=== PATIENT | female | born 1990 | race Caucasian/White ===

== ENCOUNTER → 2019-01-15 | Outpatient (CLI) | payer OTHER, MEDICARE | END | disposition home or self-care (01) | LOC: SPEC 12:52 | DX: Z01.419 Encounter for gynecological examination (general) (routine) without abnormal findings (principal) | CPT/HCPCS: 88175 ==

== ENCOUNTER → 2019-01-30 | Outpatient (CLI) | payer OTHER | END | disposition home or self-care (01) | LOC: LAB 09:28 | PROVIDERS: ATTEND Family Medicine | DX: Z11.3 Encounter for screening for infections with a predominantly sexual mode of transmission (principal) | CPT/HCPCS: 36415; 86592; 86703 ==

== ENCOUNTER → 2020-12-27 | Outpatient (CLI) | payer OTHER ==
[~2020-12-27] MED LIST: CHOL200074 PO; CRAN400T5 PO; DOXY100T PO; MULT-496 PO; OMEG1CAP68 PO
== END ==
LOC: LAB 13:52
PROVIDERS: ATTEND Otolaryngology
DX: Z01.812 Encounter for preprocedural laboratory examination (principal); J32.0 Chronic maxillary sinusitis; J32.1 Chronic frontal sinusitis; J32.2 Chronic ethmoidal sinusitis; J32.3 Chronic sphenoidal sinusitis; J01.41 Acute recurrent pansinusitis; J34.3 Hypertrophy of nasal turbinates; Z20.822 Contact with and (suspected) exposure to COVID-19
CPT/HCPCS: U0003; U0005

== ENCOUNTER 2020-12-30 06:59 | Day surgery (SDC) | payer OTHER ==
[~2020-12-30] VITALS: Ht 162.6 cm; Wt 81.6 kg
[~2020-12-30 06:59] MED LIST changes: +HYDROmorphone 2 MG/ML VIAL IVP PRN; +IV RINGERS,LACTATED 1000ML 1,000 ML IV SCH; +MORPHINE SULFATE 2 MG/ML VIAL. IVP PRN; +PROCHLORPERAZINE 10 MG/2 ML VIAL. IVP PRN; +fentaNYL PF VIAL 100 MCG/2 ML VIAL IVP PRN
[2020-12-30] MEDS ORDERED: OXYMETAZOLINE 0.05% NASAL SPRAY 30ML BOTTLE. NS ONE ×2 (07:30→08:12)
[2020-12-30] MEDS ORDERED: SEVOFLURANE 61 TO 120 MINUTES. IH ONE (07:57)
[2020-12-30] MEDS ORDERED: LIDOCAINE 2% PF 5 ML VIAL. ONE (07:57)
[2020-12-30] MEDS ORDERED: MIDAZOLAM HCL/PF 2 MG/2 ML VIAL. ONE (07:57)
[2020-12-30] MEDS ORDERED: ONDANSETRON PF 4 MG/2 ML VIAL. ONE (07:57)
[2020-12-30] MEDS ORDERED: DEXAMETHASONE SOD PHOS 4 MG/ML VIAL ONE ×2 (07:57→08:05)
[2020-12-30] MEDS ORDERED: ROCURONIUM 50 MG/5 ML VIAL. ONE (07:57)
[2020-12-30] MEDS ORDERED: PROPOFOL 10 MG/ML (20ML) VIAL. IV ONE (07:57)
[2020-12-30] MEDS ORDERED: fentaNYL PF VIAL 100 MCG/2 ML VIAL ONE (07:57)
[2020-12-30] MEDS ORDERED: SCOPOLAMINE 1.5MG PATCH. TD ONE (08:00)
[2020-12-30] MEDS ORDERED: MUPIROCIN 2 % NASAL OINTMENT 22GM TUBE. ONE (08:12)
[2020-12-30] MEDS ORDERED: GELATIN SPONGE SIZE 100. ONE (08:12)
[2020-12-30] MEDS ORDERED: PHENYLEPHRINE 0.25% NASAL SPRAY 15ML BOTTLE. NS ONE (08:13)
[2020-12-30] MEDS ORDERED: NEOMY/BACITR/POLYMYXIN OINT PACKET. TP ONE (08:13)
[2020-12-30] MEDS ORDERED: EPINEPHrine VIAL 30 MG/30 ML VIAL ONE (08:13)
[2020-12-30] MEDS ORDERED: LIDOCAINE 1%/EPI 1:100,000 20 ML VIAL. ONE (08:13)
--- NOTE | 2020-12-30 08:26 | PDOC1 ---
History and Physical Date of Admission Date of Admission DATE: 12/30/20 TIME: 08:21 Identification/Chief Complaint Chief Complaint chronic left-sided pansinusitis History of Present Illness History of Present Illness 30 year old female whom suffers from chronic left pansinusitis for the past 4-5 months. Patient has constant left-sided sinus pressure/pain, drainage and bilateral nasal congestion. These symptoms have been refractory to medical management. Patient has been treated with multiple courses of antibiotcs and steroids without resolution of symptoms. Past Medical History Past Medical History none Social History Smoke: No ALCOHOL: none Current Medications Current Medications Current Medications Fentanyl Citrate (Fentanyl 2ml Vial) 25 mcg PRN Q5MIN PRN IVP MILD PAIN 1-3; Start 12/30/20 at 06:00; Stop 12/31/20 at 05:59 Fentanyl Citrate (Fentanyl 2ml Vial) 50 mcg PRN Q5MIN PRN IVP MODERATE PAIN 4- 6; Start 12/30/20 at 06:00; Stop 12/31/20 at 05:59 Morphine Sulfate (Morphine Sulfate) 1 mg PRN Q10MIN PRN IVP SEVERE PAIN 7-10; Start 12/30/20 at 06:00; Stop 12/31/20 at 05:59 Ringer's Solution 1,000 ml @ 30 mls/hr Q24H IV Last administered on 12/30/20at 08:05; Start 12/30/20 at 06:00; Stop 12/30/20 at 17:59 Hydromorphone HCl (Dilaudid) 0.5 mg PRN Q10MIN PRN IVP SEVERE PAIN 7-10, 2nd CHOICE; Start 12/30/20 at 06:00; Stop 12/31/20 at 05:59 Prochlorperazine Edisylate (Compazine) 5 mg PACU PRN PRN IVP NAUSEA, MRX1; Start 12/30/20 at 06:00; Stop 12/31/20 at 05:59 Oxymetazoline HCl (Afrin) 3 spray 1X ONCE NS Last administered on 12/30/20at 07:30; Start 12/30/20 at 07:30; Stop 12/30/20 at 07:31; Status DC Scopolamine (Transderm-Scop) 1 patch 1X ONCE TD Last administered on 12/30/20at 08:05; Start 12/30/20 at 08:00; Stop 12/30/20 at 08:01; Status DC Rocuronium [place] (Zemuron) 50 mg STK-MED ONCE .ROUTE ; Start 12/30/20 at 07:57; Stop 12/30/20 at 07:57; Status DC Fentanyl Citrate (Fentanyl 2ml Vial) 100 mcg STK-MED ONCE .ROUTE ; Start 12/30/20 at 07:57; Stop 12/30/20 at 07:57; Status DC Midazolam HCl (Versed) 2 mg STK-MED ONCE .ROUTE ; Start 12/30/20 at 07:57; Stop 12/30/20 at 07:58; Status DC Sevoflurane (Ultane) 60 ml STK-MED ONCE IH ; Start 12/30/20 at 07:57; Stop 12/30/20 at 07:58; Status DC Dexamethasone Sodium Phosphate (Decadron) 4 mg STK-MED ONCE .ROUTE ; Start 12/30/20 at 07:57; Stop 12/30/20 at 07:58; Status DC Propofol (Diprivan) 200 mg STK-MED ONCE IV ; Start 12/30/20 at 07:57; Stop 12/30/20 at 07:58; Status DC Lidocaine HCl (Lidocaine Pf 2% Vial) 5 ml STK-MED ONCE .ROUTE ; Start 12/30/20 at 07:57; Stop 12/30/20 at 07:58; Status DC Ondansetron HCl (Zofran) 4 mg STK-MED ONCE .ROUTE ; Start 12/30/20 at 07:57; Stop 12/30/20 at 07:58; Status DC Dexamethasone Sodium Phosphate (Decadron) 4 mg STK-MED ONCE .ROUTE ; Start 12/30/20 at 08:05; Stop 12/30/20 at 08:06; Status DC Gelatin (Gelfoam Size 100) 1 each STK-MED ONCE .ROUTE ; Start 12/30/20 at 08:12; Stop 12/30/20 at 08:13; Status DC Mupirocin (Bactroban) 22 bryson STK-MED ONCE .ROUTE ; Start 12/30/20 at 08:12; Stop 12/30/20 at 08:13; Status DC Oxymetazoline HCl (Afrin) 120 spray STK-MED ONCE NS ; Start 12/30/20 at 08:12; Stop 12/30/20 at 08:13; Status DC Epinephrine HCl (Adrenalin) 30 mg STK-MED ONCE .ROUTE ; Start 12/30/20 at 08:13; Stop 12/30/20 at 08:13; Status DC Phenylephrine HCl (Isaías-Synephrine 0.25% Nasal) 60 spray STK-MED ONCE NS ; Start 12/30/20 at 08:13; Stop 12/30/20 at 08:13; Status DC Neomycin/ Polymyxin/ Bacitracin (Triple Antibiotic Ointment) 1 pkt STK-MED ONCE TP ; Start 12/30/20 at 08:13; Stop 12/30/20 at 08:13; Status DC Lidocaine/ Epinephrine (LIDOCAINE 1%-EPI 1:100,000 Multi-Dose) 20 ml STK-MED ONCE .ROUTE ; Start 12/30/20 at 08:13; Stop 12/30/20 at 08:13; Status DC Active Scripts Active Reported Cranberry (Cranberry Fruit) 400 Mg Tablet 400 Mg PO DAILY Fish Oil 500 Mg Softgel ([place]-3/Dha/Epa/Fish Oil) 1 Each Capsule 1 Each PO DAILY Vitamin D3 (Cholecalciferol (Vitamin D3)) 50 Mcg Capsule 50 Mcg PO DAILY Daily Value (Multivitamin) 1 Each Tablet 1 Each PO DAILY Doxycycline Hyclate 100 Mg Tablet 100 Mg PO BID Allergies Allergies: Coded Allergies: No Known Drug Allergies (Unverified , 12/30/20) ROS General: No: Chills, Night Sweats, Fatigue, Malaise, Appetite, Other PSYCHOLOGICAL ROS: No: Anxiety, Behavioral Disorder, Concentration difficultie, Decreased libido, Depression, Disorientation, Hallucinations, Hostility, Irritablity, Memory difficulties, Mood Swings, Obsessive thoughts, Physical abuse, Sexual abuse, Sleep disturbances, Suicidal ideation, Other HEENT: YES: Nasal congestion, Nasal discharge, Sinus pain, Sore Throat Hematological and Lymphatic: No: Bleeding Problems, Blood Clots, Blood Transf usions, Brusing, Night Sweats, Pallor, Swollen Lymph Nodes, Other Respiratory: No: Cough, Hemoptysis, Orthopnea, Pleuritic Pain, Shortness of breath, SOB with excertion, Sputum Changes, Stridor, Tachypnea, Wheezing, Other Cardiovascular: No Chest Pain, No Palpitations, No Orthopnea, No Paroxysmal Noc. Dyspnea, No Edema, No Lt Headedness, No Other Gastrointestinal: No Nausea, No Vomiting, No Abdominal Pain, No Diarrhea, No Constipation, No Melena, No Hematochezia, No Other Physical Exam General: Alert, Oriented X3, Cooperative HEENT: Atraumatic, PERRLA, EOMI, Mucous membr. moist/pink, Other (bilateral inferior turbinate hypertrophy ) Lungs: Clear to auscultation, Normal air movement Heart: no jug vein distention Extremities: No clubbing, No cyanosis, No edema Skin: No rashes Neuro: Normal gait, Normal speech, Normal tone, Cranial nerves 3-12 NL Psych/Mental Status: Mental status NL, Mood NL Vitals Vitals Vital Signs Date Time Temp Pulse Resp B/P (MAP) Pulse Ox O2 Delivery O2 Flow Rate FiO2 12/30/20 07:39 97.9 77 18 115/67 99 Room Air 97.9 Labs Labs Laboratory Tests Test 12/30/20 06:27 Bedside Urine HCG, Qualitative Hcg negative (Negative) Laboratory Tests Test 12/30/20 06:27 Bedside Urine HCG, Qualitative Hcg negative (Negative) Images Images CT Sinus (November 2020): Ongoing opacification of left frontal, maxillary, ethmoid sinuses. Mucosal thickening within left posterior ethmoid and sphenoid sinuses. Bilateral inferior turbinate hypertrophy VTE Prophylaxis Ordered VTE Prophylaxis Devices: Yes VTE Pharmacological Prophylaxi: Contraindicated Assessment/Plan Assessment/Plan 30 year old female with chronic left-sided pansinusitis that has been refractory to medical management. Patient also has chronic nasal congestion secondary to bilateral inferior turbinate hypertrophy. - To OR for left functional endoscopic sinus surgery under Image Guidance Navigation (frontal, ethmoid, sphenoid, maxillary), bilateral inferior turbinate reduction and possible septoplasty. Informed consent obtained today. Justifications for Admission Other Justification ELIDIA VALENCIA MD Dec 30, 2020 08:26
[2020-12-30] MEDS ORDERED: NEOSTIGMINE METHYLSULFATE 5 MG/5 ML SYRINGE. ONE (09:07)
[2020-12-30] MEDS ORDERED: GLYCOPYRROLATE 1 MG/5 ML VIAL. ONE (09:07)
--- NOTE | 2020-12-30 10:25 | PDOC4 ---
IMMEDIATE POST OP NOTE Date: Dec 30, 2020 Pre-Op Diagnosis left chronic pansinusitis, bilateral inferior turbinate hypertrophy Post-Op Diagnosis left chronic pansinusitis, left maxillary allergic fungal sinusitis, bilateral inferior turbinate hypertrophy Procedure Performed left functional endoscopic sinus surgery under Image Guidance Navigation to include left frontal sinusotomy with removal of tissue, left total ethmoidectomy, left medial maxillary antrostomy with tissue removal, left sphenoidotomy; bilateral inferior turbinate reduction Surgeon Dr. Tracy Negrete Clinical Consultant none Anesthesiologist Dr. Palmer Anesthesia Type: General Blood Loss 25 mL Specimens Obtained left maxillary sinus contents sent for permanent pathology; left maxillary sinus contents for aerobic and fungal culture Findings 1. Polyps extending into middle meatus from left maxillary sinus. 2. Eosinophilic mucin filling left maxillary sinus with surrounding mucopurulent discharge and polyps 3. Mucosal inflammation involving left ethmoid, sphenoid and frontal sinus with some polyps within left frontal sinus 4. Bilateral inferior turbinate hypertrophy Complications none Operative Note Dictation #[id number] TRACY NEGRETE MD Dec 30, 2020 10:25
[2020-12-30] MEDS ORDERED: ACET325T9 PO (10:28)
[2020-12-30] MEDS ORDERED: OXYC5CAP PO (10:31)
[2020-12-30] MEDS ORDERED: ONDA4TAB12 PO (10:31)
[2020-12-30] MEDS ORDERED: SULF1TAB24 PO (10:31)
[2020-12-30] MEDS ORDERED: SODI1PAC NS (10:31)
[2020-12-30] MEDS ORDERED: PROCHLORPERAZINE 10 MG/2 ML VIAL. ONE (10:40)
[2020-12-30] MEDS ORDERED: CELE200C PO ×2 (10:59→11:02)
[2020-12-30] MEDS ORDERED: PRED20TA PO ×2 (11:00→11:03)
[2020-12-30 11:20] VITALS: BP 118/64
--- NOTE | 2020-12-30 11:20 | OP ---
DATE OF SURGERY: PREOPERATIVE DIAGNOSES: Left chronic pansinusitis and bilateral inferior turbinate hypertrophy. POSTOPERATIVE DIAGNOSES: Left chronic pansinusitis, left maxillary allergic fungal sinusitis and bilateral inferior turbinate hypertrophy. PROCEDURE PERFORMED: Left-sided functional endoscopic sinus surgery under image guidance navigation to include left frontal sinusotomy with removal of tissue, left total ethmoidectomy, left medial maxillary antrostomy with tissue removal and left sphenoidotomy, bilateral inferior turbinate reduction. SURGEON: Tracy Negrete MD ANESTHESIA: General endotracheal anesthesia. INDICATIONS FOR SURGERY: The patient is a 30-year-old female with a 4- to 5-month history of chronic sinus pressure and chronic nasal congestion with CT imaging showing complete opacification of the left frontal and maxillary sinuses. This was refractory to maximal medical management. The decision was made that the patient will undergo above procedure after risks, benefits, and alternatives of surgery were thoroughly discussed with the patient and informed consent was obtained. SPECIMEN: Left maxillary sinus contents were sent for permanent pathology and left maxillary sinus contents were sent for aerobic and fungal culture. INTRAOPERATIVE FINDINGS: 1. Polyps extending into the middle meatus from the left maxillary sinus. 2. Eosinophilic mucin filling the left maxillary sinus with surrounding mucopurulent discharge and polyps. 3. Mucosal inflammation involving the left ethmoid, sphenoid and frontal sinuses with katiana polyps involving the left frontal sinus. 4. Bilateral inferior turbinate hypertrophy. ESTIMATED BLOOD LOSS: 25 mL. COMPLICATIONS: None. DESCRIPTION OF THE PROCEDURE: The patient was brought back to room per Anesthesia and intubated in standard fashion. The patient was then turned 90 degrees in the room. Her nasal vestibular hairs were trimmed. The anterior septum and anterior aspect of the inferior turbinates were injected with a submucosal injection of 1% lidocaine with 1:100,000 epinephrine. Afrin-soaked pledgets were inserted in nasal cavity. The [employer] image guidance system was set up and verified for accuracy. This was used to ensure complete dissection and for patient safety. The patient was then prepped and draped in standard fashion. Afrin-soaked pledgets were removed. The 0-degree scope was used to visualize the patient's left and right nasal cavity. The septum was found to have a slight high septal deflection to the left, but not significant enough to require a septoplasty. I injected the attachment of the middle turbinate to the lateral nasal wall on the left side, both anteriorly and posteriorly with 1% lidocaine with a submucosal injection of 1% lidocaine with 1:100,000 epinephrine. On visualization of the middle meatus. The uncinate process was medialized from severe polyps that were emanating from the maxillary sinus. Using a sharp dissection, I completely resected the uncinate process. I then further resected the specimens of the polyps extending from the maxillary sinus and then used the microdebrider to debride these polyps. The maxillary antrostomy itself had been previously widened from the polyps and inflammation itself. This was further widened both anteriorly and posteriorly with sharp dissection until it was widely patent. Within the maxillary sinus, there was katiana eosinophilic mucin and mucopurulent discharge from the eosinophilic mucin was sent for permanent pathology and the cultures were taken of the surrounding purulent discharge. I then used a 30-degree scope to visualize within the maxillary sinus and the polyps were completely debrided and the eosinophilic mucin was completely aspirated from the maxillary sinus itself. Once all of the bulky disease was gone, I irrigated the maxillary sinus multiple times with normal saline until there was no further eosinophilic mucin identified and debrided obvious inflamed polypoid tissue from the maxillary sinus itself. A 0-degree scope was again used to visualize the nasal cavity. I performed a complete ethmoidectomy first by dissecting through the medial inferior plane of the anterior ethmoid bulla. I continued my dissection through the ethmoid sinuses from anterior to posterior direction removing all the mucosal inflammation from the ethmoid sinuses themselves. Posteriorly, I identified the face of the sphenoid sinus. At the face of the sphenoid sinus, I dissected through the posterior aspect of the middle turbinate, identified the superior turbinate just medial and inferior to the superior turbinate, identified the natural os of the sphenoid sinus. This was widened both superiorly to the skull base and laterally to the lamina papyracea using sharp dissection. I used 30-degree scope to then visualize the skull base. Traveling from a posterior to anterior direction, I removed all the ethmoid air cells off the skull base. By removing the suprabullar ethmoid air cells and a small posterior wall of the agger nasi cell, I was able to widen the frontal sinus outflow tract. There was significant polypoid inflammation emanating from the frontal sinus and this was removed using sharp dissection as well as the microdebrider. Once the frontal sinus was widely patent, I again irrigated all the sinuses again with normal saline. Topical Iasías-Synephrine was then placed for several minutes for hemostasis. The middle turbinate was then bolgerized to the septum using a sickle knife. A Propel contour implant was placed within the frontal sinus outflow tract and a Propel standard implant was placed within the posterior ethmoid sinuses ensuring that the middle turbinate was well medialized. I then performed a bilateral inferior turbinate reduction beginning on the left side using a 0-degree scope to visualize the patient's left nasal cavity. I cut into the anterior aspect of the inferior turbinate using the microdebrider. I then performed a submucosal resection of the anterior aspect of the inferior turbinate. I then trimmed the excess mucosa along the entire length of the inferior turbinate along its lateral and inferior border including the posterior mulberry tissue. Suction [place] was then used to elevate the residual mucosa off the most inferior portion of the turbinate bone. A conservative resection of the most inferior portion of the turbinate bone was performed using Andre-Cut forceps. The residual mucosa was then trimmed and redraped on the residual turbinate bone. The residual turbinate bone was outfractured. Suction [place]ov[place] electrocautery was used along the entire length of the inferior turbinate along the cut edge of the mucosa, but especially posteriorly. After this was completed, the nasal airway was widely patent on this side. An identical procedure was then performed on the right side. Nasal cavity was then thoroughly aspirated. The patient was turned back over to anesthesia and extubated without complication. Our sponge, needle, instrument counts correct at the end of the case. COMPLICATIONS: None. DISPOSITION: Stable and transferred to the recovery room. TRACY NEGRETE MD DR: ROSALIO/raymond JOB#: [id number] / [id number] SHAKEEL
--- NOTE | 2021-01-03 12:09 | PATHOLOGY ---
[facility] Accession Number: [id number] . 01 Material submitted: . sinus, maxillary - LEFT MAXILLARY SINUS CONTENTS. Modifiers: left . 01 Clinical history: . CHRONIC SINUSITIS . . 02 Diagnosis: Segments of respiratory mucosa and bone, left maxillary sinus contents: - Chronic sinusitis with increased eosinophils, and segments of muco- inflammatory exudate. (JPM:pit 01/02/2021) QTP 01/03/2021 1120 Local . 02 Electronically signed: . Joe Acuna MD, Pathologist NPI- [id number] . 01 Gross description: . Received in formalin labeled "Shane, Nesha, left maxillary sinus" are multiple irregular, knight brown fragments of soft tissue measuring in aggregate 2.4 x 1.6 x 0.4 cm. The specimen is sectioned to reveal a knight brown cut surface. The specimen is entirely submitted without decalcification in cassette A1.([facility]; 12/31/2020) GZA/GZA 12/31/2020 1221 Local . 02 Pathologist provided ICD-10: J32.9 . 02 CPT . 528404, [id number] Specimen Comment: A courtesy copy of this report has been sent to [phone], [phone] Specimen Comment: [id number] Specimen Comment: Report sent to / Performed at: 01 [facility] [address] [facility] [address], [place] [id number] MD Joseph Baldwin MD Phone: [phone] Performed at: 02 [facility] [address] [place], [place] [id number] MD Joe Acuna MD Phone: [phone]
== END 2020-12-30 11:50 | disposition home or self-care (01) ==
LOC: SURG 06:59
PROVIDERS: ATTEND Otolaryngology
DX: J32.4 Chronic pansinusitis (principal); J34.3 Hypertrophy of nasal turbinates; K21.9 Gastro-esophageal reflux disease without esophagitis; F41.9 Anxiety disorder, unspecified; Z87.891 Personal history of nicotine dependence; Z79.899 Other long term (current) drug therapy; Z98.890 Other specified postprocedural states
CPT/HCPCS: 31259; 31267; 31276; 81025; 87071; 87075; 87102; 88305; 88311; A4215; A4314; A4364; A4930; A6254; A6257; C2625; J0780; J1100; J2250; J2405; J2704; J2710; J3010; J3490; A4452; A6025; J0171